=== PATIENT | female | born 1990 | race Caucasian/White ===

== ENCOUNTER 2017-12-14 15:20 | Emergency (ER) | payer SELFPAY ==
[~2017-12-14] VITALS: Ht 160 cm; Wt 64.5 kg
[~2017-12-14 15:20] MED LIST: ALBUAER2 INH; ALLDSR/24 PO
[2017-12-14 15:23] VITALS: BP 146/87; PULSE 98; TEMP 36.8; O2SAT 99; Ht 160 cm; Wt 64.5 kg
[2017-12-14] MEDS ORDERED: ATV/1 SL (15:51)
--- NOTE | 2017-12-14 16:37 | EMERGENCY ROOM VISIT NOTE ---
History Report prepared by Gerson: Mikayla Garner Under the Supervision of: Dr. Rajesh Deviln M.D. First contact with patient: 15:29 Chief Complaint: MENTAL HEALTH EVALUATION Stated Complaint: PANIC ATTACKS FOR 4 DAYS History of Present Illness The patient is a 27 year old female who presents to the Emergency Room with complaints of worsening anxiety starting 4 months ago. The patient has a history of anxiety and depression. She was previously on medications when she was in 4th or 5th grade. She currently is not on any medications and does not regularly see a counselor. She does have an online counselor that she communicates with through messaging. She started becoming anxious 4 months ago after a show. She is a performer. She stated she got very anxious which caused her to vomit. Over the past 4 days, she has felt more anxious and has had more panic attacks. She denies any auditory or visual hallucinations or thoughts of hurting herself or others. 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 She has been unable to eat or sleep because of her anxiety. She denies any drug or alcohol use. She is currently on her period. She denies any chance of . She has been keeping a journal and has noticed that she feels more anxious around her period. Her grandfather 2 months ago and her grandmother has been in and out of the hospital. She denies any fever, diarrhea, or pain. Source of History: patient Onset: 4 months ago Position: other (global) Quality: other (anxiety) Timing: worsening Modifying Factors (Worsening): other (period, going onstage) Associated Symptoms: No fevers, No diarrhea Note: Pt denies thoughts of hurting herself, hurting others, hallucinations. Review of Systems See HPI for pertinent positives & negatives. A total of 10 systems reviewed and were otherwise negative. Past Medical & Surgical Medical Problems: (1) Anxiety (2) Depression Family History No pertinent family history stated. Social History Smoking Status: Current Every Day Smoker Occupation Status: employed Current/Historical Medications Scheduled Albuterol (Ventolin), 2 PUFFS INH PRN Fexofenadine/Pseudoephedrine (Josefina-D 24HR 180/240MG *), 1 TAB PO DAILY Scheduled PRN Lorazepam (Ativan), 1 MG SL Q12 PRN for Anxiety/Agitation Allergies Coded Allergies: Gluten (Unverified Allergy, Intermediate, RASH, 08/05/09) No Known Allergies (Unverified Allergy, NONE, 05/23/09) Physical Exam Vital Signs Date Time Temp Pulse Resp B/P (MAP) Pulse Ox O2 Delivery O2 Flow Rate FiO2 12/14/17 15:23 36.8 98 18 146/87 99 Room Air Physical Exam Constitutional: Vital signs reviewed. Eyes: Pupils are equal round reactive to light. Conjunctiva are noninjected. ENT: Pharynx is clear without erythema or exudate. Mucous membranes are moist. Neck supple without meningeal signs. Respiratory: Clear to auscultation bilaterally. Breath sounds are equal bilaterally. Cardiovascular: Regular rate and rhythm. No rubs or gallops. GI: Soft, nondistended and nontender. Bowel sounds are present. Musculoskeletal: No peripheral edema. No lower extremity tenderness. Integumentary: No cyanosis. Neurological: The patient is awake and alert. No focal deficits. Psychiatric: Anxious. Medical Decision & Procedures ED Course 1533: The patient was evaluated in room A5. A complete history and physical exam was performed. I discussed anila's findings with her. She verbalized agreement of the treatment plan. She was discharged home. Medical Decision This is a 27-year-old female presents with anxiety and panic attacks. I did perform a limited focused review of portions of the patient's old chart on the electronic medical record. The patient has had no recent pertinent visits to this hospital. I did evaluate the patient has noted blood. She has a history of anxiety and panic attacks. She has no medications. Currently she does not have any health insurance and is going to be evaluated Sunday for assistance with this. She does have a counselor which she only sees online. She has had worsening anxiety over the past 4 months and also for the past several days. She does not have any suicidal thoughts or homicidal thoughts. She has no hallucinations. She does not require any inpatient care at this time. I did explain to her that she would likely benefit from being placed on an SSRI or similar drug for her anxiety, but that she would need to see a regular physician or psychiatrist as an outpatient for this. I did offer her a prescription for Ativan as a short-term rescue med for panic attacks. She was given precautions regarding this medication including side effects as well as potential for psychiatric and psychological dependence. She was evaluated by the mental health rn case manager. She was discharged with a prescription for 10 Ativan 1 mg tablets. [place] Drug Monitoring Program Search Results: patient reviewed within database Drug Monitoring Findings: No matching patients. Medication Reconcilliation Current Medication List: was personally reviewed by me Blood Pressure Screening Patient's blood pressure: Elevated blood pressure Blood pressure disposition: Referred to PCP Impression Primary Impression: Anxiety Scribe Attestation The scribe's documentation has been prepared under my direct and personally reviewed by me in its entirety. I confirm that the note above accurately reflects all work, treatment, procedures, and medical decision making performed by me. Departure Information Dispostion Home / Self-Care Prescriptions Lorazepam (ATIVAN) 1 Mg Tab 1 MG SL Q12 Y for Anxiety/Agitation, #10 TAB Prov: Rajesh Devlin M.D. 12/14/17 Referrals No Doctor, Assigned (PCP) Forms HOME CARE DOCUMENTATION FORM, IMPORTANT VISIT INFORMATION Patient Instructions ED Panic Attack, My [facility] Additional Instructions You have been examined and treated today on an emergency basis only. This is not a substitute for, or an effort to provide, complete comprehensive medical care. It is impossible to recognize and treat all injuries or illnesses in a single emergency department visit. It is therefore important that you follow up closely with a physician. Call as soon as possible for an appointment. Return for worsening symptoms or if you develop thoughts of hurting yourself or others or any other concerning symptoms.
== END 2017-12-14 16:06 | disposition home or self-care (01) ==
LOC: C.EDB 15:21 → C.EDA 16:06
DX: F41.9 Anxiety disorder, unspecified (principal); F17.200 Nicotine dependence, unspecified, uncomplicated